=== PATIENT | female | born 1965 | race American Indian/Alaskan Native ===

== ENCOUNTER 2016-06-10 21:32 | Emergency (ER) | payer MEDICARE, OTHER ==
--- NOTE | 2016-06-10 21:54 | EDM.PDOC ---
ED HISTORY OF PRESENT ILLNESS - General Chief Complaint: Chest Pain Stated Complaint: LOW BLOOD SUGAR Time Seen by Provider: 06/10/16 21:49 Source of Information: Reports: Patient History Limitations: Reports: No limitations - History of Present Illness INITIAL COMMENTS - FREE TEXT/NARRATIVE: 50 yo white female w/ PMHx. CHF and DM c/o Left side chest pain w/ left shoulder radiation and some sweating @ 8pm. No N&V. Pt. also states she checked her BS and found to be 90. Symptom Onset Date: 06/10/16 Symptom Onset Time: 20:00 Timing/Duration: Reports: Hour(s): Severity: moderate Location, General: Reports: chest Quality: Reports: Pressure Associated Symptoms (General): Reports: chest pain - Related Data Allergies/ADRs: Allergies Allergy/AdvReac Type Severity Reaction Status Date / Time lisinopril Allergy Other Verified 06/10/16 22:20 penicillin Allergy Hives Verified 06/10/16 22:20 Home Meds: Home Meds Acetaminophen [Tylenol] 325 mg PO ASDIRECTED PRN 11/04/14 [History] Aspirin [Halfprin] 81 mg PO DAILY 11/04/14 [History] Insulin Aspart [NovoLOG] 40 units SQ TID 11/04/14 [History] Insulin Detemir [Levemir Flextouch] 100 units SQ BID 11/04/14 [History] Levothyroxine [Synthroid] 100 mcg PO ACBREAKFAST 11/04/14 [History] Losartan [Cozaar] 100 mg PO DAILY 11/04/14 [History] Simvastatin [Zocor] 20 mg PO BEDTIME 11/04/14 [History] sitaGLIPtin Phos/Metformin HCl [Janumet 50-500 MG] 1 tab PO BID 11/04/14 [ History] Fenofibrate,Micronized [Fenofibrate] 134 mg PO DAILY 06/06/15 [History] Gabapentin [Neurontin] 600 mg PO BID 06/06/15 [History] Venlafaxine [Effexor XR] 150 mg PO DAILY 06/06/15 [History] Past Medical History HEENT History: Reports: None Cardiovascular History: Reports: Heart Failure, High cholesterol, Hypertension Respiratory History: Reports: None Gastrointestinal History: Reports: Diverticulosis, Other (see below) Other Gastrointestinal History: HX OF SIGMOID TUBULAR ADENOMA Genitourinary History: Reports: None 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: Musculoskeletal History: Reports: Arthritis Neurological History: Reports: Neuropathy, peripheral Psychiatric History: Reports: Anxiety, Depression Endocrine/Metabolic History: Reports: Diabetes, type II, Hypothyroidism, Obesity /BMI 30+ Hematologic History: Reports: Anemia, Iron deficiency Immunologic History: Reports: None Oncologic (Cancer) History: Reports: None Dermatologic History: Reports: None - Infectious Disease History Infectious Disease History: Reports: Chicken pox, Mumps - Past Surgical History HEENT Surgical History: Reports: None Cardiovascular Surgical History: Reports: None Respiratory Surgical History: Reports: None GI Surgical History: Reports: Cholecystectomy, Colonoscopy Other GI Surgeries/Procedures: lumpectomy Female Surgical History: Reports: Breast biopsy, Endometrial ablation Endocrine Surgical History: Reports: None Neurological Surgical History: Reports: None Musculoskeletal Surgical History: Reports: None Dermatological Surgical History: Reports: None Social & Family History - Family History Family Medical History: Noncontributory - Tobacco Use Smoking Status *Q: Former Smoker Years of Tobacco use: 8 Used Tobacco, but Quit: Yes Month Tobacco Last Used: 03/04/2000 Second Hand Smoke Exposure: No - Caffeine Use Caffeine Use: Reports: Coffee, Soda, Tea - Recreational Drug Use Recreational Drug Use: No Drug Use in Last 12 Months: No - Living Situation & Occupation Living situation: Reports: with family Occupation: unemployed ED ROS GENERAL - Review of Systems Review Of Systems: See Below Constitutional: Reports: no symptoms HEENT: Reports: No symptoms Respiratory: Reports: No Symptoms Cardiovascular: Reports: Chest pain Endocrine: Reports: low glucose GI/Abdominal: Reports: No symptoms : Reports: no symptoms Musculoskeletal: Reports: no symptoms Skin: Reports: no symptoms Neurological: Reports: No Symptoms Psychiatric: Reports: No symptoms Hematologic/Lymphatic: Reports: no symptoms Immunologic: Reports: no symptoms ED EXAM, GENERAL - Physical Exam Exam: See Below Exam Limited By: No limitations General Appearance: alert, no apparent distress, obese Eye Exam: bilateral eye: PERRL Ears: normal external exam Nose: normal inspection, normal mucosa Throat/Mouth: Normal inspection, Normal lips Head: atraumatic, normocephalic Neck: normal inspection, non-tender, full range of motion Respiratory/Chest: no respiratory distress, lungs clear, normal breath sounds, no accessory muscle use, chest non-tender Cardiovascular: normal peripheral pulses, regular rate, rhythm GI/Abdominal: normal bowel sounds, soft Back Exam: normal inspection, full range of motion Extremities: normal inspection, normal range of motion, non-tender, no pedal edema, normal capillary refill Neurological: alert, oriented, CN II-XII intact, normal cognition, normal reflexes, no motor/sensory deficits Psychiatric: normal affect, normal mood Skin Exam: Warm, Normal color, No rash Lymphatic: no adenopathy Course - Vital Signs Last Recorded V/S: Last Vital Signs Temp 35.8 C 06/10/16 22:00 Pulse 104 H 06/11/16 00:25 Resp 12 06/10/16 23:19 BP 113/38 L 06/11/16 00:25 Pulse Ox 95 06/10/16 23:19 - Orders/Labs/Meds Orders: Active Orders 24 hr Category Date Time Status EKG Documentation Completion [RC] STAT Care 06/11/16 04:00 Active Sodium Chloride 0.9% [Normal Saline] 1,000 ml Med 06/10/16 22:00 Active IV ASDIRECTED Medication Orders Sodium Chloride (Normal Saline) 1,000 mls @ 75 mls/hr IV ASDIRECTED ELISHA Last Admin: 06/10/16 22:05 Dose: 75 mls/hr Labs: Laboratory Tests 06/10/16 06/10/16 06/10/16 Range/Units 22:03 22:07 22:07 WBC 10.8 H (5.0-10.0) 10^3/uL RBC 5.48 H (4.2-5.4) 10^6/uL Hgb 14.8 (12.0-16.0) g/dL Hct 44.9 (37.0-47.0) % MCV 81.9 (80-100) fL MCH 27.0 (27.0-34.0) pg MCHC 33.0 (33.0-35.0) g/dL Plt Count 308 (150-450) 10^3/uL Neut % (Auto) 69.8 (42.2-75.2) % Lymph % (Auto) 22.4 (20.5-50.1) % [place] % (Auto) 5.1 (2-8) % Eos % (Auto) 2.3 (1.0-3.0) % Baso % (Auto) 0.4 (0.0-1.0) % D-Dimer, Quantitative < 100 (0-400) ng/mL Sodium (135-145) mmol/L Potassium (3.6-5.0) mmol/L Chloride (101-111) mmol/L Carbon Dioxide (21.0-31.0) mmol/L Anion Gap BUN (7-18) mg/dL Creatinine (0.6-1.3) mg/dL Est Cr Clr Drug Dosing Estimated GFR (MDRD) BUN/Creatinine Ratio Glucose (74-105) mg/dL POC Glucose 145 H (70-105) mg/dl Calcium (8.4-10.2) mg/dl Total Bilirubin (0.2-1.0) mg/dL AST (10-42) IU/L ALT (10-60) IU/L Alkaline Phosphatase (42-121) IU/L Troponin I (0.00-0.02) ng/ml B-Natriuretic Peptide (0-100) pg/ml Total Protein (6.7-8.2) g/dl Albumin (3.2-5.5) g/dl Globulin Albumin/Globulin Ratio 06/10/16 06/10/16 06/11/16 Range/Units 22:07 22:07 03:59 WBC (5.0-10.0) 10^3/uL RBC (4.2-5.4) 10^6/uL Hgb (12.0-16.0) g/dL Hct (37.0-47.0) % MCV (80-100) fL MCH (27.0-34.0) pg MCHC (33.0-35.0) g/dL Plt Count (150-450) 10^3/uL Neut % (Auto) (42.2-75.2) % Lymph % (Auto) (20.5-50.1) % [place] % (Auto) (2-8) % Eos % (Auto) (1.0-3.0) % Baso % (Auto) (0.0-1.0) % D-Dimer, Quantitative (0-400) ng/mL Sodium 134 L (135-145) mmol/L Potassium 4.1 (3.6-5.0) mmol/L Chloride 98 L (101-111) mmol/L Carbon Dioxide 25.0 (21.0-31.0) mmol/L Anion Gap 15.1 BUN 17 (7-18) mg/dL Creatinine 0.9 (0.6-1.3) mg/dL Est Cr Clr Drug Dosing TNP Estimated GFR (MDRD) > 60 BUN/Creatinine Ratio 18.88 Glucose 145 H (74-105) mg/dL POC Glucose (70-105) mg/dl Calcium 9.7 (8.4-10.2) mg/dl Total Bilirubin 0.2 (0.2-1.0) mg/dL AST 76 H (10-42) IU/L ALT 54 (10-60) IU/L Alkaline Phosphatase 74 (42-121) IU/L Troponin I < 0.02 < 0.02 (0.00-0.02) ng/ml B-Natriuretic Peptide 14 (0-100) pg/ml Total Protein 8.5 H (6.7-8.2) g/dl Albumin 4.0 (3.2-5.5) g/dl Globulin 4.5 Albumin/Globulin Ratio 0.89 Meds: Medications Generic Name Dose Route Start Last Admin Trade Name Freq PRN Reason Stop Dose Admin Sodium Chloride 1,000 mls @ 75 mls/hr 06/10/16 22:00 06/10/16 22:05 Normal Saline IV 75 mls/hr ASDIRECTED ELISHA Administration Discontinued Medications Generic Name Dose Route Start Last Admin Trade Name Freq PRN Reason Stop Dose Admin Al Hydroxide/Mg Hydroxide 30 ml 06/10/16 22:39 06/10/16 22:44 Gi Cocktail PO 06/10/16 22:40 30 ml ONETIME ONE Administration Morphine Sulfate 2 mg 06/10/16 21:56 06/10/16 22:10 Morphine IVPUSH 06/10/16 21:57 2 mg ONETIME ONE Administration Nitroglycerin 0.4 mg 06/10/16 21:56 06/10/16 22:10 Nitrostat SL 06/10/16 21:57 0.4 mg ONETIME ONE Administration Departure - Departure Time of Disposition: 04:39 Disposition: Home, Self-Care 01 Condition: good Clinical Impression: Atypical chest pain Forms: ED Department Discharge Additional Instructions: Rest Take Meds as directed F/U w/ PCP - My Orders Last 24 Hours: My Active Orders 06/10/16 22:00 Sodium Chloride 0.9% [Normal Saline] 1,000 ml IV ASDIRECTED 06/11/16 04:00 EKG Documentation Completion [RC] STAT - Assessment/Plan Last 24 Hours: My Active Orders 06/10/16 22:00 Sodium Chloride 0.9% [Normal Saline] 1,000 ml IV ASDIRECTED 06/11/16 04:00 EKG Documentation Completion [RC] STAT
[2016-06-10] MEDS ORDERED: Nitroglycerin 0.4 MG Tab.SL SL ONE (21:56)
[2016-06-10] MEDS ORDERED: Morphine 2 MG/ML Syringe IVPUSH ONE (21:56)
[2016-06-10] MEDS ORDERED: Sodium Chloride 0.9% 1,000 ML IV SCH (22:00)
[2016-06-10] MEDS ORDERED: GI Cocktail Oral Solution 30 ML PO ONE (22:39)
[2016-06-10 22:44] LABS: CHLORIDE,CL 98 mmol/L (101-111); SODIUM,NA 134 mmol/L (135-145)
[2016-06-11 00:25] VITALS: BP 113/38
--- NOTE | 2016-06-14 20:58 | EKG ---
06/10/2016 - BASIL AL - TIME: 2149 hours. I reviewed the EKG and agree with the machine's reading. [facility] /[id number]
--- NOTE | 2016-06-14 20:58 | EKG ---
06/11/2016 - BASIL AL - TIME: 0352 hours. I reviewed the EKG and agree with the machine's reading. [facility] /[id number]
== END 2016-06-11 04:46 | disposition home or self-care (01) ==
LOC: DL.ED 21:32
DX: R07.89 Other chest pain (principal); I50.9 Heart failure, unspecified; E78.00 Pure hypercholesterolemia, unspecified; I10 Essential (primary) hypertension; M19.90 Unspecified osteoarthritis, unspecified site; E11.42 Type 2 diabetes mellitus with diabetic polyneuropathy; Z79.4 Long term (current) use of insulin; F32.9 Major depressive disorder, single episode, unspecified; F41.9 Anxiety disorder, unspecified; D50.9 Iron deficiency anemia, unspecified; Z87.891 Personal history of nicotine dependence; Z88.0 Allergy status to penicillin; Z88.8 Allergy status to other drugs, medicaments and biological substances
CPT/HCPCS: 36415; 71010; 80053; 82962; 83880; 84484; 85025; 85379; 93005; 96361; 96374; 99285; A9270; J2270; J7030; 93010; 99284

== ENCOUNTER 2019-09-28 19:02 | Emergency (ER) | payer MEDICARE, OTHER ==
[2019-09-28 21:33] LABS: ANION GAP 16.4 mEq/L (7-13); CHLORIDE,CL 97 mmol/L (98-107); SODIUM,NA 133 mmol/L (136-145)
[2019-09-28] MEDS ORDERED: Ondansetron 4 MG/2 ML SDV IVPUSH ONE (21:35)
[2019-09-28] MEDS ORDERED: Sodium Chloride 0.9% 1,000 ML IV ONE (21:35)
[2019-09-28] MEDS ORDERED: Acetaminophen 325 MG Tab PO ONE (21:35)
[2019-09-28 21:39] VITALS: BP 136/63; PULSE 94
[2019-09-28 22:00] LABS: BASE EXCESS ARTERIAL -4 mmol/L ((-2)-(+3)); BICARBONATE,ARTERIAL 19.8 mmol/L (22-26); O2 DELIVERY DEVICE NASAL CANNULA; O2 SATURATION ARTERIAL 97 % (95-100); PCO2 ARTERIAL 33 mmHg (35-45); PO2 ARTERIAL 84 mmHg (70-100)
[2019-09-28 22:04] LABS: ALLEN TEST PERFORMED
--- NOTE | 2019-09-28 22:14 | CR ---
PROCEDURE INFORMATION: Exam: XR Chest, 1 View Exam date and time: 09/28/2019 9:52 PM Age: 54 years old Clinical indication: Cough and other: Covid positive; Additional info: SOB TECHNIQUE: Imaging protocol: XR of the chest Views: 1 view. COMPARISON: No relevant prior studies available. FINDINGS: Lungs: Suggestion of left mid lung field peripheral ground-glass opacification. Right lung is clear. Pleural space: Unremarkable. No pleural effusion. No pneumothorax. Heart/Mediastinum: Unremarkable. No cardiomegaly. Bones/joints: Unremarkable. IMPRESSION: 1. Left mid lung field peripheral ill-defined ground-glass type opacification. This may represent a ground-glass pneumonitis. CT chest would have greater sensitivity for further evaluation. 2. No pleural effusions.
--- NOTE | 2019-09-30 22:51 | EDM.PDOC ---
ED HPI GENERAL MEDICAL PROBLEM - General Chief Complaint: Respiratory Problem Stated Complaint: HARD TIME BREATHING CHEST HURTS, BACK, NAUSEA Time Seen by Provider: 09/28/19 20:20 Source of Information: Reports: Patient History Limitations: Reports: No Limitations - History of Present Illness INITIAL COMMENTS - FREE TEXT/NARRATIVE: ED with c/o difficulty breathing, fatigued, body aches, sore throat yesterday. some nausea, decreased appetite. Onset symptoms 7 days prior. Has not eaten solids x 3 days. Trying to push fluids. 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 Lower Back Pain Score (Numeric/FACES): 6 Headache Pain Score (Numeric/FACES): 8 - Related Data Allergies Allergy/AdvReac Type Severity Reaction Status Date / Time lisinopril Allergy Tachycardia Verified 09/28/19 21:40 penicillin Allergy Hives Verified 09/28/19 21:40 Home Meds: Home Meds Acetaminophen [Tylenol] 325 mg PO ASDIRECTED PRN 11/04/14 [History] Aspirin [Halfprin] 81 mg PO DAILY 11/04/14 [History] Insulin Aspart [NovoLOG] 40 units SQ TID 11/04/14 [History] Insulin Detemir [Levemir Flextouch] 50 units SQ BID 11/04/14 [History] Levothyroxine [Synthroid] 100 mcg PO ACBREAKFAST 11/04/14 [History] Losartan [Cozaar] 100 mg PO DAILY 11/04/14 [History] Simvastatin [Zocor] 20 mg PO BEDTIME 11/04/14 [History] sitaGLIPtin Phos/Metformin HCl [Janumet 50-500 MG] 1 tab PO BID 11/04/14 [History] Fenofibrate,Micronized [Fenofibrate] 134 mg PO DAILY 06/06/15 [History] Gabapentin [Neurontin] 600 mg PO BID 06/06/15 [History] Venlafaxine [Effexor XR] 150 mg PO DAILY 06/06/15 [History] Past Medical History HEENT History: Reports: None Cardiovascular History: Reports: Heart Failure, High Cholesterol, Hypertension Respiratory History: Reports: None Gastrointestinal History: Reports: Diverticulosis Other Gastrointestinal History: HX OF SIGMOID TUBULAR ADENOMA Genitourinary History: Reports: UTI, Recurrent [employer]OR History: Reports: Musculoskeletal History: Reports: Arthritis Neurological History: Reports: Neuropathy, Peripheral Psychiatric History: Reports: Anxiety, Depression Endocrine/Metabolic History: Reports: Diabetes, Type II, Hypothyroidism, Obesity/BMI 30+ Hematologic History: Reports: Anemia, Iron Deficiency Immunologic History: Reports: None Oncologic (Cancer) History: Reports: None Dermatologic History: Reports: None - Infectious Disease History Infectious Disease History: Reports: Chicken Pox, Mumps - Past Surgical History HEENT Surgical History: Reports: None Respiratory Surgical History: Reports: None Female Surgical History: Reports: Breast Biopsy, Endometrial Ablation Musculoskeletal Surgical History: Reports: None Dermatological Surgical History: Reports: None Social & Family History - Family History Family Medical History: Noncontributory - Tobacco Use Smoking Status *Q: Unknown Ever Smoked - Caffeine Use Caffeine Use: Reports: Coffee, Soda - Recreational Drug Use Recreational Drug Use: No - Living Situation & Occupation Living situation: Reports: with Family Occupation: Unemployed ED ROS GENERAL - Review of Systems Review Of Systems: Comprehensive ROS is negative, except as noted in HPI. ED EXAM, GENERAL - Physical Exam Exam: See Below Exam Limited By: No Limitations General Appearance: Lethargic, Mild Distress, Obese Eye Exam: Bilateral Eye: EOMI Ears: Normal External Exam, Normal TMs Nose: Normal Inspection Throat/Mouth: Normal Inspection Neck: Normal Inspection Respiratory/Chest: Decreased Breath Sounds, Crackles (bilateral bases), Other (1-2 word responses, exertional dyspnea with change of position) Cardiovascular: Normal Peripheral Pulses, Regular Rate, Rhythm GI/Abdominal: Normal Bowel Sounds, Soft Back Exam: Normal Inspection, Full Range of Motion Extremities: Normal Inspection, Normal Range of Motion Neurological: Oriented Psychiatric: Flat Affect Skin Exam: Warm, Dry, Intact, Normal Color Course - Vital Signs Last Recorded V/S: Last Vital Signs Temp 99.8 F 09/28/19 21:43 Pulse 94 09/28/19 20:15 Resp 24 H 09/28/19 20:15 BP 136/63 09/28/19 20:15 Pulse Ox 91 L 09/28/19 20:15 - Orders/Labs/Meds Labs: Laboratory Tests 09/28/19 09/28/19 09/28/19 Range/Units 20:44 20:44 21:00 WBC 7.1 (5.0-10.0) 10^3/uL RBC 6.03 H (4.2-5.4) 10^6/uL Hgb 15.7 (12.0-16.0) g/dL Hct 49.6 H (37.0-47.0) % MCV 82.3 (80-100) fL MCH 26.0 L (27.0-34.0) pg MCHC 31.7 L (33.0-35.0) g/dL Plt Count 206 D (150-450) 10^3/uL Neut % (Auto) 79.3 H (42.2-75.2) % Lymph % (Auto) 15.5 L (20.5-50.1) % [place] % (Auto) 5.2 (2-8) % Eos % (Auto) 0.0 L (1.0-3.0) % Baso % (Auto) 0.0 (0.0-1.0) % D-Dimer, Quantitative (0-400) ng/mL ABG pH (7.35-7.45) ABG pCO2 (35-45) mmHg ABG pO2 (70-100) mmHg ABG HCO3 (22-26) mmol/L ABG O2 Saturation (95-100) % ABG Base Excess ((-2)-(+3)) mmol/L Nilo Test O2 Delivery Device Sodium 133 L (136-145) mmol/L Potassium 4.4 (3.5-5.1) mmol/L Chloride 97 L (98-107) mmol/L Carbon Dioxide 24 (21-32) mmol/L Anion Gap 16.4 H (7-13) mEq/L BUN 18 (7-18) mg/dL Creatinine 0.85 (0.55-1.02) mg/dL Est Cr Clr Drug Dosing TNP Estimated GFR (MDRD) > 60 BUN/Creatinine Ratio 21.2 (No establ ref range) Glucose 103 H (74-99) mg/dL Lactic Acid 1.1 (0.4-2.0) mmol/L Calcium 8.3 L (8.5-10.1) mg/dL Total Bilirubin 0.3 (0.2-1.0) mg/dL AST 37 (15-37) U/L ALT 26 (14-59) U/L Alkaline Phosphatase 158 H (46-116) U/L Troponin I < 0.017 (0.000-0.056) ng/mL C-Reactive Protein 11.0 H (0.0-0.9) mg/dL B-Natriuretic Peptide 49 (0-100) pg/ml Total Protein 8.3 H (6.4-8.2) g/dL Albumin 3.3 L (3.4-5.0) g/dL Globulin 5.0 Albumin/Globulin Ratio 0.66 Urine Color (YELLOW) Urine Appearance (CLEAR) Urine pH (5.0-9.0) Ur Specific [place] (1.005-1.030) Urine Protein (NEGATIVE) Urine Glucose (UA) (NEGATIVE) Urine Ketones (NEGATIVE) Urine Occult Blood (NEGATIVE) Urine Nitrite (NEGATIVE) Urine Bilirubin (NEGATIVE) Urine Urobilinogen (0.2-1.0) mg/dL Ur Leukocyte Esterase (NEGATIVE) Urine RBC /HPF Urine WBC (0-5/HPF) /HPF Ur Epithelial Cells (NOT SEEN) /HPF Amorphous Sediment (NOT SEEN) /HPF Urine Bacteria (0-FEW/HPF) /HPF Urine Mucus (NOT SEEN) /LPF Urine Yeast (NOT SEEN) /HPF COVID-19 (CAMILA) (NEGATIVE) 09/28/19 09/28/19 09/28/19 Range/Units 21:00 21:05 21:59 WBC (5.0-10.0) 10^3/uL RBC (4.2-5.4) 10^6/uL Hgb (12.0-16.0) g/dL Hct (37.0-47.0) % MCV (80-100) fL MCH (27.0-34.0) pg MCHC (33.0-35.0) g/dL Plt Count (150-450) 10^3/uL Neut % (Auto) (42.2-75.2) % Lymph % (Auto) (20.5-50.1) % [place] % (Auto) (2-8) % Eos % (Auto) (1.0-3.0) % Baso % (Auto) (0.0-1.0) % D-Dimer, Quantitative 234 (0-400) ng/mL ABG pH 7.40 (7.35-7.45) ABG pCO2 33 L (35-45) mmHg ABG pO2 84 (70-100) mmHg ABG HCO3 19.8 L (22-26) mmol/L ABG O2 Saturation 97 (95-100) % ABG Base Excess -4 L ((-2)-(+3)) mmol/L Nilo Test Performed O2 Delivery Device Nasal cannula Sodium (136-145) mmol/L Potassium (3.5-5.1) mmol/L Chloride (98-107) mmol/L Carbon Dioxide (21-32) mmol/L Anion Gap (7-13) mEq/L BUN (7-18) mg/dL Creatinine (0.55-1.02) mg/dL Est Cr Clr Drug Dosing Estimated GFR (MDRD) BUN/Creatinine Ratio (No establ ref range) Glucose (74-99) mg/dL Lactic Acid (0.4-2.0) mmol/L Calcium (8.5-10.1) mg/dL Total Bilirubin (0.2-1.0) mg/dL AST (15-37) U/L ALT (14-59) U/L Alkaline Phosphatase (46-116) U/L Troponin I (0.000-0.056) ng/mL C-Reactive Protein (0.0-0.9) mg/dL B-Natriuretic Peptide (0-100) pg/ml Total Protein (6.4-8.2) g/dL Albumin (3.4-5.0) g/dL Globulin Albumin/Globulin Ratio Urine Color (YELLOW) Urine Appearance (CLEAR) Urine pH (5.0-9.0) Ur Specific [place] (1.005-1.030) Urine Protein (NEGATIVE) Urine Glucose (UA) (NEGATIVE) Urine Ketones (NEGATIVE) Urine Occult Blood (NEGATIVE) Urine Nitrite (NEGATIVE) Urine Bilirubin (NEGATIVE) Urine Urobilinogen (0.2-1.0) mg/dL Ur Leukocyte Esterase (NEGATIVE) Urine RBC /HPF Urine WBC (0-5/HPF) /HPF Ur Epithelial Cells (NOT SEEN) /HPF Amorphous Sediment (NOT SEEN) /HPF Urine Bacteria (0-FEW/HPF) /HPF Urine Mucus (NOT SEEN) /LPF Urine Yeast (NOT SEEN) /HPF COVID-19 (CAMILA) Positive H (NEGATIVE) 09/28/19 Range/Units 22:05 WBC (5.0-10.0) 10^3/uL RBC (4.2-5.4) 10^6/uL Hgb (12.0-16.0) g/dL Hct (37.0-47.0) % MCV (80-100) fL MCH (27.0-34.0) pg MCHC (33.0-35.0) g/dL Plt Count (150-450) 10^3/uL Neut % (Auto) (42.2-75.2) % Lymph % (Auto) (20.5-50.1) % [place] % (Auto) (2-8) % Eos % (Auto) (1.0-3.0) % Baso % (Auto) (0.0-1.0) % D-Dimer, Quantitative (0-400) ng/mL ABG pH (7.35-7.45) ABG pCO2 (35-45) mmHg ABG pO2 (70-100) mmHg ABG HCO3 (22-26) mmol/L ABG O2 Saturation (95-100) % ABG Base Excess ((-2)-(+3)) mmol/L Nilo Test O2 Delivery Device Sodium (136-145) mmol/L Potassium (3.5-5.1) mmol/L Chloride (98-107) mmol/L Carbon Dioxide (21-32) mmol/L Anion Gap (7-13) mEq/L BUN (7-18) mg/dL Creatinine (0.55-1.02) mg/dL Est Cr Clr Drug Dosing Estimated GFR (MDRD) BUN/Creatinine Ratio (No establ ref range) Glucose (74-99) mg/dL Lactic Acid (0.4-2.0) mmol/L Calcium (8.5-10.1) mg/dL Total Bilirubin (0.2-1.0) mg/dL AST (15-37) U/L ALT (14-59) U/L Alkaline Phosphatase (46-116) U/L Troponin I (0.000-0.056) ng/mL C-Reactive Protein (0.0-0.9) mg/dL B-Natriuretic Peptide (0-100) pg/ml Total Protein (6.4-8.2) g/dL Albumin (3.4-5.0) g/dL Globulin Albumin/Globulin Ratio Urine Color Yellow (YELLOW) Urine Appearance Slightly cloudy (CLEAR) Urine pH 5.0 (5.0-9.0) Ur Specific [place] 1.020 (1.005-1.030) Urine Protein 100 H (NEGATIVE) Urine Glucose (UA) 500 H (NEGATIVE) Urine Ketones Trace H (NEGATIVE) Urine Occult Blood Negative (NEGATIVE) Urine Nitrite Negative (NEGATIVE) Urine Bilirubin Negative (NEGATIVE) Urine Urobilinogen 1.0 (0.2-1.0) mg/dL Ur Leukocyte Esterase Negative (NEGATIVE) Urine RBC Not seen /HPF Urine WBC 0-5 (0-5/HPF) /HPF Ur Epithelial Cells Few (NOT SEEN) /HPF Amorphous Sediment Few (NOT SEEN) /HPF Urine Bacteria Moderate H (0-FEW/HPF) /HPF Urine Mucus Rare (NOT SEEN) /LPF Urine Yeast Occasional H (NOT SEEN) /HPF COVID-19 (CAMILA) (NEGATIVE) Meds: Medications Discontinued Medications Generic Name Dose Route Start Last Admin Trade Name Eliuq PRN Reason Stop Dose Admin Acetaminophen 650 mg 09/28/19 21:35 09/28/19 21:43 Tylenol PO 09/28/19 21:36 650 mg NOW ONE Administration Sodium Chloride 1,000 mls @ 150 mls/hr 09/28/19 21:35 09/28/19 21:43 Normal Saline IV 09/29/19 04:14 150 mls/hr .BOLUS ONE Administration Ondansetron HCl 4 mg 09/28/19 21:35 09/28/19 21:48 Zofran IVPUSH 09/28/19 21:36 4 mg ONETIME ONE Administration - Re-Assessments/Exams Free Text/Narrative Re-Assessment/Exam: TC Dr Santana, due to hypoxia recommend tx. Tx to [facility] via [facility]. 1100 Dr Le accepting of patient. Departure - Departure Time of Disposition: 22:40 Disposition: DC/Tfer to Acute Hospital 02 Condition: Undetermined Clinical Impression: COVID-19 - Discharge Information *PRESCRIPTION DRUG MONITORING PROGRAM REVIEWED*: No *COPY OF PRESCRIPTION DRUG MONITORING REPORT IN PATIENT SERGIO: No Referrals: PCP,Unobtain [Ordering Only Provider] - Forms: ED Department Discharge Sepsis Event Note (ED) - Evaluation Sepsis Screening Result: Possible Sepsis Risk
== END 2019-09-28 22:40 ==
LOC: DL.ED 19:02
DX: U07.1 COVID-19 (principal); I11.0 Hypertensive heart disease with heart failure; I50.9 Heart failure, unspecified; E78.00 Pure hypercholesterolemia, unspecified; M19.90 Unspecified osteoarthritis, unspecified site; F41.9 Anxiety disorder, unspecified; F32.9 Major depressive disorder, single episode, unspecified; E11.42 Type 2 diabetes mellitus with diabetic polyneuropathy; E03.9 Hypothyroidism, unspecified; E66.9 Obesity, unspecified; R42 Dizziness and giddiness; Z68.41 Body mass index [BMI] 40.0-44.9, adult; Z79.82 Long term (current) use of aspirin; Z79.4 Long term (current) use of insulin; Z79.899 Other long term (current) drug therapy; Z98.890 Other specified postprocedural states; Z88.8 Allergy status to other drugs, medicaments and biological substances; Z88.0 Allergy status to penicillin
CPT/HCPCS: 36415; 36600; 71045; 80053; 81001; 82803; 83605; 83880; 84484; 85025; 85379; 86140; 87040; 93005; 96361; 96374; 99285; A9270; J2405; J7030; U0002; 99284

== ENCOUNTER 2019-10-17 14:04 | Emergency (ER) | payer MEDICARE, OTHER ==
[2019-10-17 14:16] VITALS: BP 106/87; PULSE 107
[2019-10-17] MEDS ORDERED: methylPREDNISolone Sodium Succinate 40 MG/1 ML SDV IM ONE (14:53)
--- NOTE | 2019-10-17 15:01 | EDM.PDOC ---
<Nathalie Miles R - Last Filed: 10/17/19 15:26> ED HPI GENERAL MEDICAL PROBLEM - General Chief Complaint: Skin Complaint Stated Complaint: [id number] BREAKING OUT Time Seen by Provider: 10/17/19 14:55 Source of Information: Reports: Patient History Limitations: Reports: No Limitations - History of Present Illness INITIAL COMMENTS - FREE TEXT/NARRATIVE: Patient presents with diffuse, itchy rash in her trunk, bilateral UE and LE that started Saturday10/14/2019. She was discharged home from hospital Saturday10/11/2019 after getting treated for COVID-19. She was discharged home on Apixaban for 1 month. she denies fever, chills, nausea, vomiting, shortness of breath, chest tightness, headaches. Treatments STRAPPER AND BUFFER: Reports: Other (see below) (benadryl) - Related Data Allergies Allergy/AdvReac Type Severity Reaction Status Date / Time lisinopril Allergy Tachycardia Verified 10/17/19 14:17 penicillin Allergy Hives Verified 10/17/19 14:17 Home Meds: Home Meds Acetaminophen [Tylenol] 325 mg PO ASDIRECTED PRN 11/04/14 [History] Aspirin [Halfprin] 81 mg PO DAILY 11/04/14 [History] Insulin Aspart [NovoLOG] 40 units SQ TID 11/04/14 [History] Insulin Detemir [Levemir Flextouch] 40 units SQ BID 11/04/14 [History] Levothyroxine [Synthroid] 100 mcg PO ACBREAKFAST 11/04/14 [History] Losartan [Cozaar] 100 mg PO DAILY 11/04/14 [History] Simvastatin [Zocor] 20 mg PO BEDTIME 11/04/14 [History] Fenofibrate,Micronized [Fenofibrate] 134 mg PO DAILY 06/06/15 [History] Gabapentin [Neurontin] 600 mg PO BID 06/06/15 [History] Venlafaxine [Effexor XR] 150 mg PO DAILY 06/06/15 [History] Apixaban [Eliquis] 10/17/19 [History] Past Medical History HEENT History: Reports: None Cardiovascular History: Reports: Heart Failure, High Cholesterol, Hypertension Respiratory History: Reports: None Gastrointestinal History: Reports: Diverticulosis Other Gastrointestinal History: HX OF SIGMOID TUBULAR ADENOMA Genitourinary History: Reports: UTI, Recurrent 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: Musculoskeletal History: Reports: Arthritis Neurological History: Reports: Neuropathy, Peripheral Psychiatric History: Reports: Anxiety, Depression Endocrine/Metabolic History: Reports: Diabetes, Type II, Hypothyroidism, Obesity/BMI 30+ Hematologic History: Reports: Anemia, Iron Deficiency Immunologic History: Reports: None Oncologic (Cancer) History: Reports: None Dermatologic History: Reports: None - Infectious Disease History Infectious Disease History: Reports: Chicken Pox, Mumps - Past Surgical History HEENT Surgical History: Reports: None Respiratory Surgical History: Reports: None Female Surgical History: Reports: Breast Biopsy, Endometrial Ablation Musculoskeletal Surgical History: Reports: None Dermatological Surgical History: Reports: None Social & Family History - Family History Family Medical History: Noncontributory - Tobacco Use Smoking Status *Q: Never Smoker - Caffeine Use Caffeine Use: Reports: None - Recreational Drug Use Recreational Drug Use: No - Living Situation & Occupation Living situation: Reports: with Family Occupation: Unemployed ED ROS GENERAL - Review of Systems Review Of Systems: See Below Constitutional: Reports: No Symptoms HEENT: Reports: No Symptoms Respiratory: Reports: No Symptoms Cardiovascular: Reports: No Symptoms Endocrine: Reports: No Symptoms GI/Abdominal: Reports: No Symptoms : Reports: No Symptoms Musculoskeletal: Reports: No Symptoms Skin: Reports: No Symptoms, Other (Diffuse Morbiliform rash noted on the trunk, upper extremities and lower extremities and back.) Neurological: Reports: No Symptoms Psychiatric: Reports: No Symptoms Hematologic/Lymphatic: Reports: No Symptoms Immunologic: Reports: No Symptoms ED EXAM, SKIN/RASH Exam: See Below Exam Limited By: No Limitations General Appearance: Alert, WD/WN, No Apparent Distress Ears: Normal External Exam, Normal Canal, Hearing Grossly Normal, Normal TMs Nose: Normal Inspection, Normal Mucosa, No Blood Throat/Mouth: Normal Inspection, Normal Lips, Normal Teeth, Normal Gums, Normal Oropharynx, Normal Voice, No Airway Compromise Head: Atraumatic, Normocephalic Neck: Normal Inspection, Supple, Non-Tender, Full Range of Motion, Other (No tongue swelling, no increased work of breathing. ) Respiratory/Chest: No Respiratory Distress, Lungs Clear, Normal Breath Sounds, No Accessory Muscle Use, Chest Non-Tender Cardiovascular: Normal Peripheral Pulses, Regular Rate, Rhythm, No Edema, No Gallop, No JVD, No Murmur, No Rub GI/Abdominal: Normal Bowel Sounds, Soft, Non-Tender, No Organomegaly, No Distention, No Abnormal Bruit, No Mass (Female) Exam: Deferred Rectal (Female) Exam: Deferred Back Exam: Normal Inspection, Full Range of Motion, NT Extremities: Normal Inspection, Normal Range of Motion, Non-Tender, No Pedal Edema, Normal Capillary Refill Neurological: Alert, Oriented, CN II-XII Intact, Normal Cognition, Normal Gait, Normal Reflexes, No Motor/Sensory Deficits Skin: Rash (Diffuse morbiliform rash noted on the trunk, back, UE and LE bilaterally.), Other Lymphatic: No Adenopathy Course - Vital Signs Text/Narrative:: IM methylprednisolone 80mg given Departure - Departure Time of Disposition: 15:06 Disposition: Home, Self-Care 01 Condition: Good Clinical Impression: Drug reaction, Rash - Discharge Information Instructions: Rash, Adult, Drug Allergy, [id number] Forms: ED Department Discharge Care Plan Goals: Will Discontinue Apixaban and start patient on Xeralto. Will give a prescription for prednisone 40mg for 7 days. Recommend patient follow up with PCP. Patient has an appointment with Dr. Hardy on Saturday10/21/2019 Sepsis Event Note (ED) - Evaluation Sepsis Screening Result: No Definite Risk <Manuela Sams - Last Filed: 10/17/19 16:14> Course - Vital Signs Last Recorded V/S: Last Vital Signs Temp 97.8 F 10/17/19 14:15 Pulse 107 H 10/17/19 14:15 Resp 20 10/17/19 14:15 BP 106/87 10/17/19 14:15 Pulse Ox 96 10/17/19 14:15 - Orders/Labs/Meds Meds: Medications Discontinued Medications Generic Name Dose Route Start Last Admin Trade Name Freq PRN Reason Stop Dose Admin Methylprednisolone Sodium Succinate 80 mg 10/17/19 14:53 10/17/19 15:02 Solu-Medrol IM 10/17/19 14:54 80 mg ONETIME ONE Administration Sepsis Event Note (ED) - Focused Exam Vital Signs: Vital Signs Temp Pulse Resp BP Pulse Ox 10/17/19 14:15 97.8 F 107 H 20 106/87 96 - Problem List Review Problem List Initiated/Reviewed/Updated: Yes - Assessment/Plan Plan: Patient seen and examined. Agree with note as written by Dr. Miles. 10/17/2019 [id number].
== END 2019-10-17 15:18 | disposition home or self-care (01) ==
LOC: DL.ED 14:04
DX: L27.0 Generalized skin eruption due to drugs and medicaments taken internally (principal); T45.515A Adverse effect of anticoagulants, initial encounter; I11.0 Hypertensive heart disease with heart failure; I50.9 Heart failure, unspecified; E78.00 Pure hypercholesterolemia, unspecified; E11.9 Type 2 diabetes mellitus without complications; F41.9 Anxiety disorder, unspecified; F32.9 Major depressive disorder, single episode, unspecified; E03.9 Hypothyroidism, unspecified; E66.9 Obesity, unspecified; Z68.41 Body mass index [BMI] 40.0-44.9, adult; Z88.8 Allergy status to other drugs, medicaments and biological substances; Z88.0 Allergy status to penicillin; Z79.82 Long term (current) use of aspirin
CPT/HCPCS: 96372; 99283; J2920

== ENCOUNTER 2024-05-08 15:06 | Emergency (ER) | payer OTHER ==
[2024-05-08] MEDS ORDERED: Sodium Chloride 0.9% 10 ML Syringe FLUSH PRN (15:26)
[2024-05-08] MEDS: GI Cocktail Oral Solution 30 ML PO ONE (15:34)
[2024-05-08 15:42] LABS: BASOPHILS PERCENT AUTO 0.2 % (0.0-1.0); EOSINOPHILS PERCENT AUTO 2.2 % (1.0-3.0); HEMATOCRIT 41.4 % (37.0-47.0); HEMOGLOBIN 12.5 g/dL (12.0-16.0); LYMPHOCYTES PERCENT AUTO 18.1 % (20.5-50.1); MEAN CORPUSCULAR HEMOGLOBIN 23.5 pg (27.0-34.0); MEAN CORPUSCULAR HGB CONC 30.2 g/dL (33.0-35.0); MONOCYTES PERCENT AUTO 5.7 % (2-8); NEUTROPHILS PERCENT AUTO 73.8 % (42.2-75.2); PLATELET COUNT,PLT 286 10^3/uL (150-450); RED BLOOD CELL COUNT 5.31 10^6/uL (4.2-5.4); WHITE BLOOD CELL COUNT,WBC 11.2 10^3/uL (5.0-10.0)
[2024-05-08 16:03] LABS: ALBUMIN 3.1 g/dL (3.4-5.0); ANION GAP 14.3 mEq/L (7-13); BILIRUBIN TOTAL 0.2 mg/dL (0.2-1.0); BUN/CREATININE RATIO 11.1 (No establ ref range); C-REACTIVE PROTEIN 2.1 ng/dL (<=0.50); CREATININE 1.08 mg/dL (0.55-1.02); EST CRCL DRUG DOSING (CG) 49.63 mL/min; POTASSIUM,K 4.3 mmol/L (3.5-5.1); PROTEIN TOTAL,TP 7.7 g/dL (6.4-8.2)
[2024-05-08 16:05] LABS: A/G RATIO 0.67
[2024-05-08] MEDS: Heparin Sodium 5,000 Units/ML Vial IVPUSH ONE (16:15)
[2024-05-08] MEDS: Aspirin 81 MG Tab.Chew PO ONE (16:15)
[2024-05-08] MEDS: Heparin Sodium/0.45% NaCl 25,000 UNITS/500 ML BAG IV SCH ×2 (16:15→16:28)
[2024-05-08] MEDS: Nitroglycerin 0.4 MG Tab.SL SL ONE (16:29)
[2024-05-08 17:11] VITALS: BP 135/66; PULSE 77
== END 2024-05-08 17:57 ==
LOC: DL.ED 15:06
DX: I21.4 Non-ST elevation (NSTEMI) myocardial infarction (principal); I11.0 Hypertensive heart disease with heart failure; I50.9 Heart failure, unspecified; E78.00 Pure hypercholesterolemia, unspecified; E11.9 Type 2 diabetes mellitus without complications; E03.9 Hypothyroidism, unspecified; Z88.0 Allergy status to penicillin; Z88.8 Allergy status to other drugs, medicaments and biological substances; Z79.82 Long term (current) use of aspirin; Z79.4 Long term (current) use of insulin; Z79.899 Other long term (current) drug therapy; Z79.01 Long term (current) use of anticoagulants; Z79.890 Hormone replacement therapy; Z86.16 Personal history of COVID-19; Z90.49 Acquired absence of other specified parts of digestive tract
CPT/HCPCS: 36415; 71046; 80053; 83735; 84484; 85025; 86140; 93005; 93010; 96365; 99285; 99285-25; A9270-GY; J1644

== ENCOUNTER 2024-05-27 10:00 | Emergency (ER) | payer OTHER ==
[2024-05-27] MEDS: Famotidine 20 MG/2 ML SDV IVPUSH ONE (10:26)
[2024-05-27] MEDS: methylPREDNISolone Sodium Succinate 40 MG/1 ML SDV IVPUSH ONE (10:26)
[2024-05-27 12:47] VITALS: BP 156/79; PULSE 71
[2024-05-29 13:47] LABS: TRYPTASE 15.9 ug/L (<=10.9)
== END 2024-05-27 12:31 | disposition home or self-care (01) ==
LOC: DL.ED 10:00
DX: T78.3XXA Angioneurotic edema, initial encounter (principal); I11.0 Hypertensive heart disease with heart failure; I50.9 Heart failure, unspecified; E11.9 Type 2 diabetes mellitus without complications; E66.9 Obesity, unspecified; E03.9 Hypothyroidism, unspecified; E78.00 Pure hypercholesterolemia, unspecified; M19.90 Unspecified osteoarthritis, unspecified site; Z88.8 Allergy status to other drugs, medicaments and biological substances; Z88.0 Allergy status to penicillin; Z79.899 Other long term (current) drug therapy; Z79.82 Long term (current) use of aspirin; Z79.4 Long term (current) use of insulin; Z79.890 Hormone replacement therapy; Z86.16 Personal history of COVID-19; Z90.49 Acquired absence of other specified parts of digestive tract
CPT/HCPCS: 83520; 86160; 96374; 96375; 99284; J2919; 36415; 99283